=== PATIENT | female | born 1945 ===

== ENCOUNTER 2020-01-14 09:41 | Inpatient (IN) ==
[2020-01-14] MEDS ORDERED: ASPIRIN 325 MG TABLET PO STA (10:25)
[2020-01-14 10:34] LABS: Basophils # 0.1 10*3/uL (0.0-0.2); Basophils % 0.4 % (0.0-0.8); Eosinophils % 0.3 % (0.00-10.9); Hematocrit 32.9 VOL% (35.7-47.0); Hemoglobin 11.1 GM/DL (12.0-16.0); Immature Granulocytes Absolute 0.12 #; Lymphocytes # 1.2 10*3/uL (1.4-4.0); Lymphocytes % 9.5 % (21.3-54.2); Mean Corpuscular HGB Conc 33.7 GM/DL (32-36); Mean Corpuscular Volume 80.2 FL (87-102); Mean Platelet Volume 8.4 FL (9.6-12.0); Monocytes % 7.9 % (1.7-12.7); Neutrophils % 80.9 % (38.7-73.9); Platelet Count 364 T/CUMM (130-400); Red Cell Distribution Width 13.2 % (9.3-17.3); White Blood Count 12.6 T/CUMM (4-12)
[2020-01-14 10:46] LABS: INR 1.1; PT Patient Result 11.3 SECS (9.8-11.9)
[2020-01-14] MEDS ORDERED: HEPARIN 1,000 UNIT/1 ML VIAL IV STA (10:47)
[2020-01-14 10:52] LABS: Eosinophils 2 % (0-10); Lymphocytes 8 % (20-55); Platelet Estimate Adequate; Segmented Neutrophils 81 % (50-85); Total Cells Counted 100
[2020-01-14 10:53] LABS: Hypochromasia 1+; Microcytosis 1+; Ovalocytes Slight
[2020-01-14 10:54] LABS: Albumin 2.8 G/DL (3.4-5.0); Bilirubin,Total 0.9 MG/DL (0.2-1.0); CKMB % 6.6 %; Calcium 9.6 MG/DL (8.5-10.1); Osmolality,Calculated 275.1 MOS/KG (273-304); Total Protein 7.6 G/DL (6.4-8.3)
[2020-01-14 10:55] LABS: Troponin I 0.337 NG/ML (0.00-0.045)
[2020-01-14] MEDS ORDERED: HEPARIN 5,000 UNIT/1 ML VIAL ONE ×2 (10:56→11:38)
[2020-01-14] MEDS ORDERED: LIDOCAINE 1% 20 ML VIAL ONE (11:05)
[2020-01-14] MEDS ORDERED: HEPARIN/NACL 0.9% 2 UNITS/ML 1,000 ML IV ONE (11:05)
[2020-01-14] MEDS ORDERED: fentaNYL 100 MCG/2 ML VIAL ONE (11:05)
[2020-01-14] MEDS ORDERED: MIDAZOLAM 2 MG/2 ML VIAL ONE ×2 (11:05→11:36)
[2020-01-14] MEDS ORDERED: diphenhydrAMINE 50 MG/1 ML VIAL ONE (11:28)
[2020-01-14] MEDS ORDERED: HYDROCORTISONE 100 MG VIAL ONE (11:28)
[2020-01-14] MEDS ORDERED: EPTIFIBATIDE 75 MG/100 ML BOTTLE IV SCH (11:30)
[2020-01-14] MEDS ORDERED: EPTIFIBATIDE 20,000 MCG/10 ML VIAL ONE (11:33)
[2020-01-14] MEDS ORDERED: EPTIFIBATIDE 75 MG/100 ML BOTTLE IV ONE (11:33)
[2020-01-14] MEDS ORDERED: TICAGRELOR 90 MG TABLET ONE (12:05)
[2020-01-14] MEDS ORDERED: ACETAMINOPHEN 325 MG TABLET PO PRN (12:22)
[2020-01-14] MEDS ORDERED: MORPHINE 4 MG/1 ML VIAL IV PRN (12:22)
[2020-01-14] MEDS ORDERED: ONDANSETRON 4 MG/2 ML VIAL IV PRN (12:22)
[2020-01-14] MEDS ORDERED: ZALEPLON 5 MG CAPSULE PO PRN (12:22)
[2020-01-14] MEDS ORDERED: SODIUM CHLORIDE 0.9% 1,000 ML IV SCH (12:30)
[2020-01-14] MEDS: FAMOTIDINE 20 MG TABLET PO SCH ×2 (12:45→20:50)
[2020-01-14] MEDS: LEVOFLOXACIN 250 MG TABLET PO SCH (15:49)
[2020-01-14] MEDS: diphenhydrAMINE CAP 25 MG CAPSULE PO SCH ×2 (17:02→23:50)
[2020-01-14 17:38] LABS: Basophils % 0.3 % (0.0-0.8); Hematocrit 29.7 VOL% (35.7-47.0); Hemoglobin 9.7 GM/DL (12.0-16.0); Immature Granulocytes % 0.8 %; Lymphocytes % 8.8 % (21.3-54.2); Mean Corpuscular HGB Conc 32.7 GM/DL (32-36); Mean Corpuscular Volume 81.6 FL (87-102); Mean Platelet Volume 8.7 FL (9.6-12.0); Monocytes % 4.3 % (1.7-12.7); Neutrophils % 85.8 % (38.7-73.9); Platelet Count 341 T/CUMM (130-400); Red Blood Count 3.64 MC/CUMM (3.8-5.5); Red Cell Distribution Width 13.3 % (9.3-17.3); White Blood Count 11.9 T/CUMM (4-12)
[2020-01-14 18:10] LABS: CKMB % 13.2 %
[2020-01-14 18:14] LABS: Troponin I 52.9 NG/ML (0.00-0.045)
[2020-01-14] MEDS: TICAGRELOR 90 MG TABLET PO SCH (20:50)
[2020-01-14] MEDS: predniSONE 20 MG TABLET PO SCH (20:50)
[2020-01-14] MEDS: METOPROLOL TARTRATE 50 MG TABLET PO SCH (20:50)
[2020-01-14] MEDS: ROSUVASTATIN 20 MG TABLET PO SCH (20:50)
[2020-01-14] MEDS: INSULIN LISPRO 100 UNIT/ML SUBCUT SCH (21:05)
[2020-01-15 02:52] LABS: CKMB % 10.7 %
[2020-01-15 02:58] LABS: Calcium 9.2 MG/DL (8.5-10.1); Risk Ratio 3.95; Thyroid Stimulating Hormone 0.898 uIU/ml (0.358-3.74); VLDL CHOLESTEROL 25.6 MG/DL
[2020-01-15 03:06] LABS: Troponin I 21.9 NG/ML (0.00-0.045)
[2020-01-15] MEDS: ENOXAPARIN 40 MG/0.4 ML SYRINGE SUBCUT SCH (06:10)
[2020-01-15] MEDS: LEVOTHYROXINE 125 MCG TABLET PO SCH (06:15)
[2020-01-15] MEDS: diphenhydrAMINE CAP 25 MG CAPSULE PO SCH ×2 (06:15→11:26)
[2020-01-15] MEDS: TICAGRELOR 90 MG TABLET PO SCH ×2 (08:12→20:39)
[2020-01-15] MEDS: ASPIRIN EC 81 MG TABLET PO SCH (08:13)
[2020-01-15] MEDS: FAMOTIDINE 20 MG TABLET PO SCH ×2 (08:13→20:40)
[2020-01-15] MEDS: predniSONE 20 MG TABLET PO SCH (08:13)
[2020-01-15] MEDS: TRIAMTERENE/HCTZ 37.5-25 MG CAPSULE PO SCH (08:13)
[2020-01-15] MEDS: METOPROLOL TARTRATE 50 MG TABLET PO SCH (08:14)
[2020-01-15] MEDS: INSULIN LISPRO 100 UNIT/ML SUBCUT SCH ×4 (08:25→22:39)
[2020-01-15] MEDS ORDERED: amLODIPine 10 MG TABLET PO SCH (09:00)
[2020-01-15] MEDS ORDERED: POTASSIUM CHLORIDE 20 MEQ TABLET PO ONE (16:05)
[2020-01-15] MEDS: LEVOFLOXACIN 250 MG TABLET PO SCH (16:13)
[2020-01-15 16:25] LABS: Basophils % 0.1 % (0.0-0.8); Hematocrit 30.9 VOL% (35.7-47.0); Hemoglobin 10.3 GM/DL (12.0-16.0); Immature Granulocytes % 1.4 %; Immature Granulocytes Absolute 0.22 #; Lymphocytes # 1.2 10*3/uL (1.4-4.0); Lymphocytes % 7.2 % (21.3-54.2); Mean Corpuscular HGB Conc 33.3 GM/DL (32-36); Mean Corpuscular Volume 80.3 FL (87-102); Mean Platelet Volume 8.7 FL (9.6-12.0); Monocytes % 4.4 % (1.7-12.7); Neutrophils % 86.9 % (38.7-73.9); Platelet Count 432 T/CUMM (130-400); Red Blood Count 3.85 MC/CUMM (3.8-5.5); Red Cell Distribution Width 13.3 % (9.3-17.3)
[2020-01-15] MEDS: METOPROLOL TARTRATE 25 MG TABLET PO SCH (20:39)
[2020-01-15] MEDS: ROSUVASTATIN 20 MG TABLET PO SCH (22:39)
[2020-01-16 05:26] LABS: Basophils % 0.2 % (0.0-0.8); Eosinophils % 0.1 % (0.00-10.9); Hematocrit 29.2 VOL% (35.7-47.0); Hemoglobin 9.8 GM/DL (12.0-16.0); Immature Granulocytes % 1.2 %; Immature Granulocytes Absolute 0.17 #; Lymphocytes # 2.1 10*3/uL (1.4-4.0); Lymphocytes % 14.1 % (21.3-54.2); Mean Corpuscular HGB Conc 33.6 GM/DL (32-36); Mean Corpuscular Volume 80.2 FL (87-102); Mean Platelet Volume 8.9 FL (9.6-12.0); Monocytes % 9.6 % (1.7-12.7); Neutrophils % 74.8 % (38.7-73.9); Platelet Count 414 T/CUMM (130-400); Red Blood Count 3.64 MC/CUMM (3.8-5.5); Red Cell Distribution Width 13.5 % (9.3-17.3); White Blood Count 14.7 T/CUMM (4-12)
[2020-01-16 05:48] LABS: Calcium 9.8 MG/DL (8.5-10.1)
[2020-01-16] MEDS: INSULIN LISPRO 100 UNIT/ML SUBCUT SCH ×4 (09:15→21:51)
[2020-01-16] MEDS: TRIAMTERENE/HCTZ 37.5-25 MG CAPSULE PO SCH (10:50)
[2020-01-16] MEDS: ASPIRIN EC 81 MG TABLET PO SCH (10:50)
[2020-01-16] MEDS: ENOXAPARIN 40 MG/0.4 ML SYRINGE SUBCUT SCH (10:50)
[2020-01-16] MEDS: amLODIPine 5 MG TABLET PO SCH (10:50)
[2020-01-16] MEDS: FAMOTIDINE 20 MG TABLET PO SCH ×2 (10:50→21:50)
[2020-01-16] MEDS: TICAGRELOR 90 MG TABLET PO SCH ×2 (10:50→21:49)
[2020-01-16] MEDS: metFORMIN 500 MG TABLET PO SCH ×2 (10:50→17:00)
[2020-01-16] MEDS: METOPROLOL TARTRATE 25 MG TABLET PO SCH ×2 (10:50→21:53)
[2020-01-16] MEDS: LEVOTHYROXINE 125 MCG TABLET PO SCH (11:18)
[2020-01-16] MEDS: LEVOFLOXACIN 250 MG TABLET PO SCH (15:35)
[2020-01-16] MEDS: ROSUVASTATIN 20 MG TABLET PO SCH (21:49)
[2020-01-17 05:38] LABS: Basophils # 0.1 10*3/uL (0.0-0.2); Basophils % 0.9 % (0.0-0.8); Eosinophils # 0.2 10*3/uL (0.0-0.87); Eosinophils % 1.8 % (0.00-10.9); Hematocrit 30.6 VOL% (35.7-47.0); Hemoglobin 10.2 GM/DL (12.0-16.0); Immature Granulocytes % 0.8 %; Immature Granulocytes Absolute 0.07 #; Lymphocytes # 3.3 10*3/uL (1.4-4.0); Lymphocytes % 37.5 % (21.3-54.2); Mean Corpuscular HGB Conc 33.3 GM/DL (32-36); Mean Corpuscular Volume 79.9 FL (87-102); Mean Platelet Volume 8.6 FL (9.6-12.0); Monocytes % 10.3 % (1.7-12.7); Neutrophils % 48.7 % (38.7-73.9); Platelet Count 371 T/CUMM (130-400); Red Blood Count 3.83 MC/CUMM (3.8-5.5); Red Cell Distribution Width 13.5 % (9.3-17.3); White Blood Count 8.8 T/CUMM (4-12)
[2020-01-17] MEDS: LEVOTHYROXINE 125 MCG TABLET PO SCH (05:38)
[2020-01-17 06:08] LABS: Calcium 9.3 MG/DL (8.5-10.1); Osmolality,Calculated 280.7 MOS/KG (273-304)
[2020-01-17] MEDS: ENOXAPARIN 40 MG/0.4 ML SYRINGE SUBCUT SCH (09:01)
[2020-01-17] MEDS: INSULIN LISPRO 100 UNIT/ML SUBCUT SCH ×2 (09:01→12:03)
[2020-01-17] MEDS: amLODIPine 5 MG TABLET PO SCH (09:01)
[2020-01-17] MEDS: TRIAMTERENE/HCTZ 37.5-25 MG CAPSULE PO SCH (09:01)
[2020-01-17] MEDS: metFORMIN 500 MG TABLET PO SCH (09:01)
[2020-01-17] MEDS: TICAGRELOR 90 MG TABLET PO SCH (09:01)
[2020-01-17] MEDS: ASPIRIN EC 81 MG TABLET PO SCH (09:01)
[2020-01-17] MEDS: METOPROLOL TARTRATE 25 MG TABLET PO SCH (09:01)
[2020-01-17] MEDS: FAMOTIDINE 20 MG TABLET PO SCH (09:04)
[2020-01-17 13:21] VITALS: BP 124/76
== END 2020-01-17 14:45 | disposition home or self-care (01) | DRG 246 ==
LOC: N.ED 09:41 → N.CC 11:25 → SUATTDRO 11:56 → N.EDINP 11:56 → N.CC 12:05 → N.2W 01-15 17:25
PROVIDERS: ADMIT Internal Medicine Cardiovascular Disease; ATTEND Internal Medicine
PROC: CLCCHCL (ICD-10-PCS; 2020-01-14 11:45)